=== PATIENT | male | born 1960 | race Caucasian/White ===

== ENCOUNTER 2019-02-27 08:11 | Outpatient (CLI) | payer BC ==
[~2019-02-27 08:11] MED LIST: PREMYELOGRAM MEDICATION REVIEW 1 EACH MISC PO ONE
[2019-02-27 08:46] VITALS: TEMP 97.7
[2019-02-27 08:56] LABS: Glucose,Whole Blood 172 mg/dL (75-99)
[2019-02-27] MEDS: DIAZEPAM 5 MG TAB PO STA ×2 (09:07→10:59)
[2019-02-27 11:24] VITALS: RESP 16
[2019-02-27 11:31] LABS: Glucose,Whole Blood 120 mg/dL (75-99)
[2019-02-27 12:44] VITALS: PULSE 82
[2019-02-27 12:45] VITALS: BP 143/81
--- NOTE | 2019-02-27 14:44 | FL ---
EXAMINATION TYPE: FL myelogram 2 or more regions DATE OF EXAM: 02/27/2019 COMPARISON: CT abdomen pelvis dated 11/30/2015 HISTORY: 1 minute of fluoroscopy time was utilized with 1 image saved. Informed consent was obtained and all the patient's questions were answered. Preprocedural timeout wa s performed using 2 patient identifiers. The patient described an unsuccessful prior myelogram and re ported that the prior physician enter the spinal canal to low, therefore as no recent imaging was ramirez ilable for comparison to assess the degree of spinal canal stenosis nor the location of the cauda equ shyla the decision was made to approach at the central L3 level within the spinous process resection/po sterior element defect. It is noted prior to the procedure within the nursing notes that the patient complained of lower extremity numbness prior to the procedure as documented. Approximately 6 cc of lidocaine was utilized to anesthetize the skin surface and subcutaneous tissues at this level with a 1/2 inch 25-gauge needle. An attempt was made to enter the spinal canal with a 22-gauge spinal needle however this was not able to be advanced under fluoroscopy into the posterior element spinal column defect. No contrast nor lidocaine were administered into the thecal sac as the thecal sac was not ever successfully entered. A lower site was going to be attempted however the peter ent described lower extremity numbness, slightly worsened from baseline and declined attempt at a sec ond site at L4. The patient was monitored independently by the nursing staff and symptoms improved al though the patient declined extended surveillance. IMPRESSION: Unsuccessful myelography of the lumbar spine.
== END 2019-02-27 12:35 | disposition home or self-care (01) ==
LOC: RADPROMAIN 08:11
PROVIDERS: ATTEND Physician Assistant Surgical
DX: M54.5 Low back pain (principal); M54.2 Cervicalgia; M54.6 Pain in thoracic spine
CPT/HCPCS: 62305; J2001

== ENCOUNTER → 2021-05-09 | Outpatient (CLI) | payer BC ==
[2021-05-09 08:10] VITALS: BP 160/102; PULSE 85; RESP 18; TEMP 98.2
--- NOTE | 2021-05-09 08:37 | P.PAINCN ---
History of Present Illness - Reason for Consult Consult date: 05/09/21 - History of Present Illness 60 years old male with a chronic history of severe low back pain, patient had multiple back surgeries ( total of 8 ) he did fairly well until November 2020 when he had an accident, and that time he started having severe low back pain with radiation to the left lower extremity, associated with some numbness and tingling sensation, patient had no weakness in his lower extremity, he reported that the pain and low back area constant and increased with any activity mostly in the low back area with radiation to the left leg, has done physical therapy without any significant improvement, tried different pain medications without any significant improvement, and is currently on [place] and he used CBD oil, the pain is constant, severe, interfering with the quality of life and activity of daily livings Past Medical History Past Medical History: Diabetes Mellitus, Musculoskeletal Disorder Additional Past Medical History / Comment(s): lower back pain, beatriz legs,lt knee,calf,foot. fluid on lt knee, currently going to PT. diverticulitis History of Any Multi-Drug Resistant Organisms: None Reported Past Surgical History: Back Surgery, Bowel Resection Additional Past Surgical History / Comment(s): colon surgery, 6 different back surgeries, rt foot surgery, spinal stimulator. removal of fluid on lt knee Past Anesthesia/Blood Transfusion Reactions: No Reported Reaction Smoking Status: Former smoker Medications and Allergies Home Medications Medication Instructions Recorded Confirmed Type HYDROcodone/APAP 10-325MG [[place] 1 tab PO Q4-6H PRN 02/20/19 05/03/21 History 10-325] LORazepam [Ativan] 1 mg PO TID PRN 02/20/19 05/03/21 History Cannabidiol (Cbd) [Epidiolex] 1 dose PO DAILY PRN 05/03/21 05/03/21 History Clotrimazole/Betameth Cream 1 applic TOPICAL DAILY PRN 05/03/21 05/03/21 History [Lotrisone] Dulaglutide [Trulicity] 1.5 mg SQ SA 05/03/21 05/03/21 History Allergies Allergy/AdvReac Type Severity Reaction Status Date / Time ciprofloxacin [From Cipro] Allergy Anaphylaxis Verified 05/03/21 14:21 duloxetine [From Cymbalta] Allergy Anaphylaxis Verified 05/03/21 14:21 eszopiclone [From Lunesta] Allergy Anaphylaxis Verified 05/03/21 14:21 fentanyl Allergy Chest Pain Verified 05/03/21 14:21 metronidazole [From Flagyl] Allergy Anaphylaxis Verified 05/03/21 14:21 morphine Allergy Dyspnea Verified 05/03/21 14:21 Physical Exam Vitals: Vital Signs Temp Pulse Resp BP Pulse Ox 05/09/21 08:05 98.2 F 85 18 160/102 99 Physical Examinations : -Constitutiona : Cooperative , not in acute distress . -HEENT : nech : supple , no Lymphadenopathy , normal thyroid size . : eyes : no ptosis , no icterus, no photophobia . - neurologic : Cranial nerve II to XII intact , no focal neurological deffecit . -psychatric : alert , oriented X 3 , appropriate affect , intact judgment and insight . -Lymphatic : no Lymphadenopathy . - musculoskeltal : Lumber spine moter stegnth lower extremities ,thigh and legs 5/5 Right side , 5/5 Left side deep tendon reflexes : normal Knee Jerk , normal ankle Jerk lumber facet Loading Test =positive Right , positive Left Range of motion of the lumbar spine Flexion 30 degrees, extension 10 degrees strait leg raising test = positive at 30 degree on The left side Fabere test= .negative Right , and positive LT . Sever tenderness over the Sacroiliac joint on the Left sides We have tenderness over the location of the left piriformis muscles Results Comments: Computed tomography scan of the lumbar spine= L2-3 disc bulging with facet arthropathy , L4 5 fusion Assessment and Plan Plan: Assessment and plan=1-left piriformis muscle spasm/syndrome. 2- Postlaminectomy pain syndrome lumbar area . he could benefit from left piriformis muscle steroid injection under ultrasound guidance x1 . We'll reevaluate patient condition after the injection, if he had no benefit, then will do caudal epidural lysis of adhesions Time with Patient: Greater than 30 PQRS Measure Charge Sheet Measure #130: Documentation of Current Meds in Medical Chart: Patient's medications documented in chart Measure #226: Tobacco Use: Screen & Cessation Intervention: Pt not a tobacco user Measure #111: Pneumonia Vaccination: Pneumococcal vaccine NOT administered or previously given Measure #47: Advance Care Plan: Advance care planning discussed & documented, pt chose/unable to give Measure #412: Opioid Treatment Agreement: No documentation of signed opioid treatment agreement Measure #408: Opioid Therapy Follow-up Evaluation: Patient had NO f/u eval minimum every 3 months during opioid therapy Measure #317: Preventitive Care & Scrn High Bld Press & F/U: Pre-hypertensive or hypertensive BP documented, pt will f/u with PCP Measure #128: Body Mass Index (BMI) Screening & Follow-up: BMI documented ABOVE normal parameters - f/u documented Measure #131: Pain Assessment & Follow-up: Pain positive & plan documented, Follow-up scheduled Measure #431: Unhealthy Alcohol Use Preventative Care & Scrn: Patient not identified as an unhealthy alcohol user PQRS Narrative: Smoking Status Former smoker Blood Pressure 160/102 Pain Intensity [Back] 6 Scale Used Numeric (1 - 10) Hx Alcohol Use (MH) Yes Home Medications: Ambulatory Orders HYDROcodone/APAP 10-325MG [[place] 10-325] 1 tab PO Q4-6H PRN 02/20/19 LORazepam [Ativan] 1 mg PO TID PRN 02/20/19 Cannabidiol (Cbd) [Epidiolex] 1 dose PO DAILY PRN 05/03/21 Clotrimazole/Betameth Cream [Lotrisone] 1 applic TOPICAL DAILY PRN 05/03/21 Dulaglutide [Trulicity] 1.5 mg SQ SA 05/03/21
== END ==
LOC: PNWHC3 07:51
PROVIDERS: ATTEND Specialist
DX: M62.838 Other muscle spasm (principal); M96.1 Postlaminectomy syndrome, not elsewhere classified; E11.9 Type 2 diabetes mellitus without complications; Z87.891 Personal history of nicotine dependence; Z79.84 Long term (current) use of oral hypoglycemic drugs; Z88.1 Allergy status to other antibiotic agents; Z88.5 Allergy status to narcotic agent; Z88.8 Allergy status to other drugs, medicaments and biological substances; Z79.4 Long term (current) use of insulin
CPT/HCPCS: 99211

== ENCOUNTER → 2021-05-24 | Outpatient (CLI) | payer BC ==
--- NOTE | 2021-05-25 06:49 | US ---
EXAMINATION TYPE: US venous doppler duplex LE LT DATE OF EXAM: 05/24/2021 5:15 PM COMPARISON: NONE CLINICAL HISTORY: I80.9 Phlebitis and thrombophlebitis. SIDE PERFORMED: Left TECHNIQUE: The lower extremity deep venous system is examined utilizing real time linear array sonog waylon with graded compression, doppler sonography and color-flow sonography. VESSELS IMAGED: Common Femoral Vein Deep Femoral Vein Greater Saphenous Vein * Femoral Vein Popliteal Vein Small Saphenous Vein * Proximal Calf Veins (* superficial vessels) Left Leg: Negative for DVT IMPRESSION: No evidence for DVT at this time.
== END | disposition home or self-care (01) ==
LOC: RADUSWWP 16:28
PROVIDERS: ATTEND Orthopaedic Surgery
DX: I80.9 Phlebitis and thrombophlebitis of unspecified site (principal)